=== PATIENT | female | born 1985 | race Caucasian/White ===

== ENCOUNTER 2017-10-02 08:38 | Outpatient (CLI) | payer OTHER ==
[~2017-10-02] VITALS: Ht 170.2 cm; Wt 101.6 kg
[2017-10-02] MEDS ORDERED: ZANTAC300 MG PO (09:55)
[2017-10-02] MEDS ORDERED: FLONASE16 GM NASAL (09:55)
== END 2017-10-02 09:00 | disposition home or self-care (01) ==
LOC: OFIC 805 08:38
DX: C73 Malignant neoplasm of thyroid gland (principal); J31.0 Chronic rhinitis; H69.83 Other specified disorders of Eustachian tube, bilateral; J34.2 Deviated nasal septum; J34.3 Hypertrophy of nasal turbinates

== ENCOUNTER 2017-10-23 08:42 | Outpatient (CLI) | payer OTHER ==
[~2017-10-23] VITALS: Ht 152.4 cm; Wt 101.6 kg
[~2017-10-23 08:42] MED LIST: FLONASE16 GM NASAL; ZANTAC300 MG PO
== END 2017-10-23 09:00 | disposition home or self-care (01) ==
LOC: OFIC 805 08:42
DX: J31.0 Chronic rhinitis (principal); R22.1 Localized swelling, mass and lump, neck; C73 Malignant neoplasm of thyroid gland; H69.83 Other specified disorders of Eustachian tube, bilateral; J34.2 Deviated nasal septum

== ENCOUNTER 2017-10-30 08:44 | Outpatient (CLI) | payer OTHER ==
[~2017-10-30] VITALS: Ht 152.4 cm; Wt 101.6 kg
== END 2017-10-30 09:00 | disposition home or self-care (01) ==
LOC: OFIC 805 08:44
DX: J31.0 Chronic rhinitis (principal); R22.1 Localized swelling, mass and lump, neck; C73 Malignant neoplasm of thyroid gland; H69.83 Other specified disorders of Eustachian tube, bilateral; J34.2 Deviated nasal septum; J34.3 Hypertrophy of nasal turbinates

== ENCOUNTER 2017-11-07 09:38 | Inpatient (IN) | payer OTHER ==
[~2017-11-07] VITALS: Ht 170.2 cm; Wt 101.6 kg
[2017-11-13] MEDS ORDERED: SYNTHROID50 MCG PO (14:01)
[2017-11-13] MEDS ORDERED: CALTRATE 600+D1 EAC1 PO (14:04)
== END 2017-11-13 15:42 | disposition home or self-care (01) | DRG 627 ==
LOC: O/R 11-12 05:44 → SURH 11-12 10:45 → SURG 11-12 17:15
PROVIDERS: Otolaryngology
PROC: 0GTK0ZZ Resection of Thyroid Gland, Open Approach (ICD-10-PCS; principal; 2017-11-12 10:45)
DX: C73 Malignant neoplasm of thyroid gland (principal); E83.51 Hypocalcemia

== ENCOUNTER 2017-12-11 09:42 | Outpatient (CLI) | payer OTHER ==
[~2017-12-11] VITALS: Ht 152.4 cm; Wt 101.6 kg
[~2017-12-11 09:42] MED LIST changes: +CALCITRIOL0.25 MCG PO; +CALTRATE 600+D1 EAC1 PO; +SYNTHROID50 MCG PO
[2017-12-11] MEDS ORDERED: CALCITRIOL0.25 MCG PO (11:38)
== END 2017-12-11 10:00 | disposition home or self-care (01) ==
LOC: OFIC 805 09:42
DX: E89.2 Postprocedural hypoparathyroidism (principal); E03.8 Other specified hypothyroidism; C73 Malignant neoplasm of thyroid gland

== ENCOUNTER 2017-12-26 13:14 | Outpatient (CLI) | payer OTHER | END 2017-12-26 13:45 | disposition home or self-care (01) | LOC: NUCLEAR 13:14 | DX: C73 Malignant neoplasm of thyroid gland (principal) | CPT/HCPCS: 79005; A9517 ==

== ENCOUNTER → 2017-12-26 15:14 | Outpatient (CLI) | payer OTHER | END | disposition home or self-care (01) | LOC: LAB 15:14 | DX: Z32.02 Encounter for pregnancy test, result negative (principal) ==

== ENCOUNTER 2017-12-30 14:13 | Outpatient (CLI) | payer OTHER | END 2017-12-30 14:19 | disposition home or self-care (01) | LOC: NUCLEAR 14:13 | DX: C73 Malignant neoplasm of thyroid gland (principal) ==

== ENCOUNTER → 2018-02-25 06:37 | Outpatient (CLI) | payer OTHER | END | disposition home or self-care (01) | LOC: LAB 06:37 | DX: C73 Malignant neoplasm of thyroid gland (principal); E89.0 Postprocedural hypothyroidism ==

== ENCOUNTER 2018-04-09 10:00 | Outpatient (CLI) | payer OTHER ==
[~2018-04-09] VITALS: Ht 152.4 cm; Wt 102.5 kg
[2018-04-09] MEDS ORDERED: CALCITRIOL0.25 MCG PO ×2 (13:05→13:10)
== END 2018-04-09 10:15 | disposition home or self-care (01) ==
LOC: OFIC 805 10:00
DX: C73 Malignant neoplasm of thyroid gland (principal); E83.51 Hypocalcemia; E89.0 Postprocedural hypothyroidism; E03.8 Other specified hypothyroidism; Z90.89 Acquired absence of other organs

== ENCOUNTER → 2019-01-02 | Outpatient (CLI) | payer OTHER | END | disposition home or self-care (01) | LOC: NUCLEAR 12:20 | DX: C73 Malignant neoplasm of thyroid gland (principal) | CPT/HCPCS: 78018; 78020; A9548 ==